=== PATIENT | female | born 1985 | race Caucasian/White ===

== ENCOUNTER 2017-10-21 12:42 | Emergency (ER) | payer OTHER ==
[~2017-10-21] VITALS: Ht 175.3 cm; Wt 139.4 kg
[~2017-10-21 12:42] MED LIST: IBUP800T23 PO
[2017-10-21 12:44] VITALS: BP 118/88; PULSE 82; RESP 16; TEMP 98.7; O2SAT 98
[2017-10-21 12:57] VITALS: BP 144/84; PULSE 87; RESP 18; O2SAT 99
[2017-10-21] MEDS ORDERED: LIRA1INJ2 SQ (13:02)
--- NOTE | 2017-10-21 13:13 | PD ---
HPI Chief Complaint: Chest Pain Time Seen by Provider: 12:59 Travel History International Travel<30 days: No Contact w/Intl Traveler<30days: No Traveled to known affect area: No History of Present Illness HPI 32-year-old female complaining the chest pain. Patient states the pain started about 3 days ago. Patient states the pain aching pain and sharp pain localized left upper chest area. Patient denies any pain radiation. Patient denies palpitation apheresis. Patient states the pain is worse with movement of the left arm, deep breathing or coughing. Patient denies any recent injury. Patient denies any fever chills. Patient denies history of CAD. Patient denies history hypertension, diabetes, dyslipidemia. Patient quit smoking recently. Patient denies any family history heart disease. Patient states that she started taking SAXENDA for weight loss recently. Patient states the pain started before she started taking medication. On a scale of 1-10 the pain is a 7. PFSH Past Medical History Medical History: Denies Significant Hx Hx Anticoagulant Therapy: No Diabetes: No Diminished Hearing: No Immunizations Current: No Seizures: Yes (FEBRILE SZ CHILDHOOD/ PHENOBARB A CHILD) Influenza Vaccination: No ?: Not LMP: LAST WEEK Past Surgical History Surgical History: No Previous Surgery Social History Alcohol Use: No Tobacco Use: Yes (<4 CIGS PER DAY) Substance Use: No Allergies-Medications (Allergen,Severity, Reaction): Coded Allergies: No Known Allergies (Verified Adverse Reaction, Unknown, 10/21/17) Reported Meds & Prescriptions Reported Meds & Active Scripts Active Reported Saxenda Inj (Liraglutide Inj) 18 Mg/3 Ml Pen 0.6 Mg SQ DAILY Review of Systems General / Constitutional: No: Fever Eyes: No: Visual changes HENT: No: Headaches Cardiovascular: Positive: Chest Pain or Discomfort Respiratory: No: Shortness of Breath Gastrointestinal: No: Abdominal Pain Genitourinary: No: Dysuria Musculoskeletal: No: Pain Skin: No Rash Neurologic: No: Weakness Psychiatric: No: Depression Endocrine: No: Polydipsia Hematologic/Lymphatic: No: Easy Bruising Physical Exam Narrative GENERAL: Well-nourished, well-developed patient. SKIN: Focused skin assessment warm/dry. HEAD: Normocephalic. EYES: No scleral icterus. No injection or drainage. NECK: Supple, trachea midline. No JVD or lymphadenopathy. CARDIOVASCULAR: Regular rate and rhythm without murmurs, gallops, or rubs. RESPIRATORY: Breath sounds equal bilaterally. No accessory muscle use. GASTROINTESTINAL: Abdomen soft, non-tender, nondistended. MUSCULOSKELETAL: No cyanosis, or edema. She has reproducible tenderness on palpation left upper chest anterior aspect the left shoulder. Full range of motion left shoulder joint. BACK: Nontender without obvious deformity. No CVA tenderness. Neurologic exam normal. Data Data Last Documented VS Vital Signs Date Time Temp Pulse Resp B/P (MAP) Pulse Ox O2 Delivery O2 Flow Rate FiO2 10/21/17 14:17 77 18 133/80 (97) 98 10/21/17 13:24 Room Air 10/21/17 12:44 98.7 Orders Orders Electrocardiogram (10/21/17 13:08) Complete Blood Count With Diff (10/21/17 13:08) Basic Metabolic Panel (Bmp) (10/21/17 13:08) Creatine Kinase (Cpk) (10/21/17 13:08) Troponin I (10/21/17 13:08) Chest, Single Ap (10/21/17 13:08) Iv Access Insert/Monitor (10/21/17 13:08) Ecg Monitoring (10/21/17 13:08) Oximetry (10/21/17 13:08) Labs Laboratory Tests Test 10/21/17 13:26 White Blood Count 5.8 TH/MM3 Red Blood Count 4.53 MIL/MM3 Hemoglobin 11.8 GM/DL Hematocrit 36.2 % Mean Corpuscular Volume 79.8 FL Mean Corpuscular Hemoglobin 25.9 PG Mean Corpuscular Hemoglobin Concent 32.5 % Red Cell Distribution Width 16.1 % Platelet Count 246 TH/MM3 Mean Platelet Volume 8.8 FL Neutrophils (%) (Auto) 61.2 % Lymphocytes (%) (Auto) 28.1 % Monocytes (%) (Auto) 6.5 % Eosinophils (%) (Auto) 3.3 % Basophils (%) (Auto) 0.9 % Neutrophils # (Auto) 3.5 TH/MM3 Lymphocytes # (Auto) 1.6 TH/MM3 Monocytes # (Auto) 0.4 TH/MM3 Eosinophils # (Auto) 0.2 TH/MM3 Basophils # (Auto) 0.1 TH/MM3 CBC Comment DIFF FINAL Differential Comment Blood Urea Nitrogen 13 MG/DL Creatinine 0.60 MG/DL Random Glucose 83 MG/DL Calcium Level 8.3 MG/DL Sodium Level 138 MEQ/L Potassium Level 4.3 MEQ/L Chloride Level 108 MEQ/L Carbon Dioxide Level 25.5 MEQ/L Anion Gap 5 MEQ/L Estimat Glomerular Filtration Rate 114 ML/MIN Total Creatine Kinase 87 U/L Troponin I LESS THAN 0.02 NG/ML MDM Medical Decision Making Medical Screen Exam Complete: Yes Emergency Medical Condition: Yes Interpretation(s) 1453 PM. EKG shows sinus rhythm intraventricular conduction delay. No previous EKG for comparison. Last Impressions Chest X-Ray 10/21/17 1308 Signed Impressions: Service Date/Time: Saturday, October 21, 2017 13:12 - CONCLUSION: 1. Poor inspiratory chest without evidence of acute airspace disease. 2. Cardiomegaly which is accentuated by degree of inspiration. Bryant Elias MD CBC within normal limit. BMP within normal limit. Cardiac enzymes are normal. Differential Diagnosis Differential diagnosis including musculoskeletal, angina, VT, PE, pneumothorax. Narrative Course 32-year-old female with left upper anterior chest wall pain. Pain is worse with deep inspiration coughing and movement of left arm. Diagnosis Primary Impression: Chest wall pain Patient Instructions: General Instructions Additional Instructions: Take medication as directed for pain. Follow-up with personal physician. Return if increasing chest pain shortness of breath. Med/Other Pt SpecificInfo: Prescription(s) given Scripts Methocarbamol (Robaxin) 750 Mg Tab 750 MG PO QID for Muscle Spasm, #40 TAB 0 Refills Prov: Juve Gutiérrez MD 10/21/17 Ibuprofen (Ibuprofen) 600 Mg Tab 600 MG PO TID for Pain, #30 TAB 0 Refills Prov: Juve Gutiérrez MD 10/21/17 Disposition: 01 DISCHARGE HOME Condition: Stable Juve Gutiérrez MD Oct 21, 2017 13:13
[2017-10-21 13:24] VITALS: O2SAT 99
[2017-10-21 13:38] LABS: AUTOMATED NEUTROPHIL # 3.5 TH/MM3 (1.8-7.7); BASOPHIL # 0.1 TH/MM3 (0-0.2); BASOPHIL % 0.9 % (0.0-2.0); EOSINOPHIL # 0.2 TH/MM3 (0-0.4); EOSINOPHIL % 3.3 % (0.0-4.0); HEMATOCRIT 36.2 % (35.0-46.0); HEMOGLOBIN 11.8 GM/DL (11.6-15.3); LYMPH % 28.1 % (9.0-44.0); LYMPHOCYTE # 1.6 TH/MM3 (1.0-4.8); MEAN CELL VOLUME 79.8 FL (80.0-100.0); MEAN CORPUSCULAR HEMOGLOBIN 25.9 PG (27.0-34.0); MEAN CORPUSCULAR HGB CONC 32.5 % (32.0-36.0); MEAN PLATELET VOLUME 8.8 FL (7.0-11.0); MONO % 6.5 % (0.0-8.0); MONOCYTE # 0.4 TH/MM3 (0-0.9); NEUT % 61.2 % (16.0-70.0); PLATELET COUNT 246 TH/MM3 (150-450); RED BLOOD COUNT 4.53 MIL/MM3 (4.00-5.30); RED CELL DISTRIBUTION WIDTH 16.1 % (11.6-17.2); WHITE BLOOD COUNT 5.8 TH/MM3 (4.0-11.0)
--- NOTE | 2017-10-21 13:40 | RADRPT ---
EXAM DATE/TIME: 10/21/2017 13:12 [facility] COMPARISON: No previous studies available for comparison. INDICATIONS : Chest pain MEDICAL HISTORY : None. SURGICAL HISTORY : None. ENCOUNTER: Initial ACUITY: 3 days PAIN SCORE: 10/10 LOCATION: Left upper chest FINDINGS: The lungs are hypoaerated but clear. There is no evidence of acute air space disease or congestion. H eart appears prominent Osseous structures are intact. CONCLUSION: 1. Poor inspiratory chest without evidence of acute airspace disease. 2. Cardiomegaly which is accentuated by degree of inspiration. Bryant Elias MD on October 21, 2017 at 13:36 Board Certified Radiologist. This report was verified electronically.
[2017-10-21 13:46] LABS: CHLORIDE 108 MEQ/L (98-107); SODIUM (NA) 138 MEQ/L (136-145)
[2017-10-21 13:48] LABS: CALCIUM 8.3 MG/DL (8.5-10.1)
[2017-10-21 13:49] LABS: BICARBONATE 25.5 MEQ/L (21.0-32.0); BLOOD UREA NITROGEN 13 MG/DL (7-18); GLUCOSE,RANDOM 83 MG/DL (74-106)
[2017-10-21 13:52] LABS: GLOMERULAR FILTRATION RATE 114 ML/MIN (>89)
[2017-10-21 13:57] LABS: TROPONIN I LESS THAN 0.02 NG/ML (0.02-0.05)
[2017-10-21 14:17] VITALS: BP 133/80; PULSE 77; RESP 18; O2SAT 98
[2017-10-21] MEDS ORDERED: ROBA750T PO (15:00)
[2017-10-21] MEDS ORDERED: IBUP-232 PO (15:00)
--- NOTE | 2017-10-21 21:51 | EKG ---
Date Performed: 10/21/2017 Time Performed: 13:19:50 PTAGE: 32 years EKG: Sinus rhythm Left bundle branch block ABNORMAL ECG NO PREVIOUS TRACING DOCTOR: Huseyin Copeland Interpretating Date/Time 10/21/2017 21:50:43
== END 2017-10-21 15:11 | disposition home or self-care (01) ==
LOC: PHED 12:42
DX: R07.89 Other chest pain (principal); F17.210 Nicotine dependence, cigarettes, uncomplicated
CPT/HCPCS: 71045; 80048; 82550; 84484; 85025; 93005; 99285